=== PATIENT | male | born 1935 | race Caucasian/White ===

== ENCOUNTER → 2021-10-10 | Outpatient (CLI) | payer MEDICARE ==
[~2021-10-10] MED LIST: ALTACE10 MG PO; ASPIRIN325 MG PO; GLUCOTROL XL 5 M5 MG PO; HYDROCHLOROTHIA25 MG PO; PLAVIX 75 MG TA75 MG PO; SIMVASTATIN40 MG PO
== END ==
LOC: ECHO 09:47
DX: I27.20 Pulmonary hypertension, unspecified (principal); I08.3 Combined rheumatic disorders of mitral, aortic and tricuspid valves
CPT/HCPCS: ECHO; 93306